=== PATIENT | male | born 1955 | race Caucasian/White ===

== ENCOUNTER 2018-01-29 17:49 | Emergency (ER) | payer OTHER, SELFPAY ==
[2018-01-29] MEDS ORDERED: HYDROcodone/Acetaminophen 10/325 mg Tablet ONE (18:04)
[2018-01-29 18:35] LABS: #Basophils 0.1 thou/uL (0.0-0.2); #Eosinphils 0.6 thou/uL (0.0-0.7); #Lymphocytes 2.6 thou/uL (1.20-3.40); #Neutrophils 8.2 thou/uL (1.40-6.50); %Basophils 0.8 % (0.0-1.0); %Eosinophils 5.1 % (0.0-10.0); %Lymphocytes 20.5 % (21.0-51.0); %Monocytes 7.7 % (0.0-10.0); %Neutrophils 65.8 % (42.0-75.0); Hemoglobin 14.8 g/dL (14.0-18.0); Mean Corpuscular HGB CONC 32.9 g/dL (32.0-36.0); Mean Corpuscular Hemoglobin 29.5 pg (27.0-31.0); Mean Corpuscular Volume 89.7 fL (78.0-98.0); Platelet Count 320 thou/uL (130-400); RBC Distribution Width 12.6 % (11.5-14.5); Red Blood Cell (RBC) Count 5.01 mill/uL (4.70-6.10); White Blood Cell (WBC) Count 12.4 thou/uL (4.8-10.8)
[2018-01-29 18:52] LABS: Anion Gap 15 mmol/L (10-20); BUN (Urea Nitrogen) 24 mg/dL (8.4-25.7); Calc. Creatinine Clearance 0 mL/min (70-130); Carbon Dioxide 24 mmol/L (23-31); Chloride 102 mmol/L (98-107); Estimated GFR-MDRD 48; Glucose 276 mg/dL (80-115); Potassium 5.1 mmol/L (3.5-5.1); Sodium 136 mmol/L (136-145)
--- NOTE | 2018-01-29 19:51 | RAD ---
RIGHT SHOULDER THREE VIEWS: History: Pain. Injury. Comparison: None. FINDINGS: The glenohumeral joint space is preserved. No fracture or dislocation. Visualized right ribs are unre markable. IMPRESSION: No fracture or dislocation. POS: PPP
--- NOTE | 2018-01-29 19:52 | RAD ---
RIGHT ANKLE THREE VIEWS: History: Pain. Injury. Comparison: None. FINDINGS: There is soft tissue swelling. Ankle mortise is intact. No evidence of fracture. Vascular calcifications are noted. IMPRESSION: 1. No fracture. 2. Soft tissue swelling. POS: PPP
--- NOTE | 2018-01-29 19:53 | RAD ---
RIGHIT KNEE FOUR VIEWS: History: Pain. Injury. Comparison: None. FINDINGS: Joint spaces are preserved. No fracture. No malalignment. No joint effusion. IMPRESSION: Unremarkable right knee four views. POS: PPP
== END 2018-01-29 19:01 | disposition home or self-care (01) ==
LOC: MADERS 17:49
DX: S80.01XA Contusion of right knee, initial encounter (principal); S90.01XA Contusion of right ankle, initial encounter; G47.30 Sleep apnea, unspecified; E11.9 Type 2 diabetes mellitus without complications; I10 Essential (primary) hypertension; Z79.84 Long term (current) use of oral hypoglycemic drugs; Z79.899 Other long term (current) drug therapy; V89.2XXA Person injured in unspecified motor-vehicle accident, traffic, initial encounter
CPT/HCPCS: 36415; 80048; 85025